=== PATIENT | female | born 1965 | race Caucasian/White ===

== ENCOUNTER → 2016-08-31 | Outpatient (CLI) | payer OTHER ==
--- NOTE | 2016-08-31 22:16 | MR ---
EXAMINATION TYPE: MR knee RT wo con DATE OF EXAM: 08/31/2016 6:34 PM COMPARISON: Outside radiographs 08/26/2016 HISTORY: 50-year-old female with right knee pain for 2 years, lifting weights TECHNIQUE: Multiplanar, multisequence imaging of the right knee is performed without IV contrast. FINDINGS: The ACL, PCL, and MCL are intact. There is a 1.3 cm length of fluid signal along the myotendinous junction of the popliteus suggesting tear. LCL complex are otherwise intact. There is an oblique tear involving the posterior horn and extending to the body of the medial meniscu s. There is a 2.0 x 1.0 cm multilocular parameniscal cyst along the posterior margin. Mild diffuse th inning of medial compartment articular cartilage without high grade cartilage lesion. There is degenerative signal within the posterior horn of the lateral meniscus. Signal may contact th e tibial articular surface, sagittal PD FS image 22. Overall lateral compartment articular cartilage volume is maintained. There is mild to moderate irregular cartilage thinning along both medial and lateral patellar facets. Minimal tendinotic signal at the insertion of the quadriceps tendon. Extensor mechanism otherwise int act. No significant knee joint effusion. There is a small Francis cyst and additional ganglions at the origi n of both medial and lateral heads of the gastrocnemius. Normal popliteal artery anatomy and mild diffuse muscular atrophy. No suspicious bone marrow replacem ent. Mild nonspecific anterior soft tissue swelling. IMPRESSION: 1. An oblique tear of the posterior horn of the medial meniscus extending to the meniscal body. A 2.0 x 1.0 cm multilocular parameniscal cyst is seen along the posterior margin. 2. Degenerative signal within the posterior horn of the lateral meniscus with a possible small menisc al tear contacting the tibial articular surface. 3. [id number] overall patellofemoral compartmental osteoarthrosis. 4. A small 1.3 cm tear along the myotendinous junction of the popliteus. 5. Mild insertional quadriceps tendinosis and small Francis's cyst.
== END | disposition home or self-care (01) ==
LOC: RADMRIMAIN 17:47
PROVIDERS: ATTEND Orthopaedic Surgery
DX: S83.241A Other tear of medial meniscus, current injury, right knee, initial encounter (principal); M17.11 Unilateral primary osteoarthritis, right knee; M71.21 Synovial cyst of popliteal space [Baker], right knee

== ENCOUNTER → 2016-09-14 | Outpatient (CLI) | payer OTHER ==
[2016-09-14 08:53] LABS: Basophils % (A) 1 %; CH 29.5; CHCM 32.8; Eosinophils # (A) 0.2 k/uL (0-0.7); Eosinophils % (A) 4 %; HCT 39.4 % (34.0-46.0); HDW 2.35; Luc # (Auto) 0.11; Luc % (Auto) 2; Lymphocytes # (A) 2.1 k/uL (1.0-4.8); Lymphocytes % (A) 37 %; MCH 29.7 pg (25.0-35.0); MCHC 32.9 g/dL (31.0-37.0); MCV 90.3 fL (80.0-100.0); Mean Platelet Volume 6.2; Monocytes # (A) 0.3 k/uL (0-1.0); Monocytes % (A) 5 %; Neutrophils % (A) 52 %; RBC 4.37 m/uL (3.80-5.40); RDW 12.8 % (11.5-15.5); WBC 5.7 k/uL (3.8-10.6); WBC (Perox) 5.84
[2016-09-14 09:02] LABS: Potassium 4.3 mmol/L (3.5-5.1)
== END | disposition home or self-care (01) ==
LOC: LABPAT 07:59
PROVIDERS: ATTEND Orthopaedic Surgery
DX: Z01.812 Encounter for preprocedural laboratory examination (principal)
CPT/HCPCS: 80051; 85025

== ENCOUNTER → 2016-09-14 | Outpatient (CLI) | payer OTHER ==
[2016-09-14 09:06] LABS: ALT 32 U/L (9-52); AST 25 U/L (14-36); Alkaline Phosphatase 74 U/L (38-126); Anion Gap 10 mmol/L; Blood Urea Nitrogen 13 mg/dL (7-17); Calcium 9.8 mg/dL (8.4-10.2); Carbon Dioxide 30 mmol/L (22-30); Chloride 104 mmol/L (98-107); Cholesterol 196 mg/dL (<200); Glucose 93 mg/dL (74-99); HDL Cholesterol 76 mg/dL (40-60); Non-African American GFR(MDRD) >60 (>60 ml/min/1.73 sqM); Potassium 4.3 mmol/L (3.5-5.1); Sodium 144 mmol/L (137-145); Total Bilirubin 0.7 mg/dL (0.2-1.3); Total Protein 7.5 g/dL (6.3-8.2); Triglycerides 73 mg/dL (<150)
== END | disposition home or self-care (01) ==
LOC: LABWHC1 08:01
PROVIDERS: ATTEND Physician Assistant
DX: Z00.00 Encounter for general adult medical examination without abnormal findings (principal); Z13.220 Encounter for screening for lipoid disorders
CPT/HCPCS: 36415; 80051; 80053; 80061; 82306; 85025

== ENCOUNTER 2016-09-18 08:47 | Day surgery (SDC) | payer OTHER ==
[2016-09-16 15:02] VITALS: BMI 26.6
--- NOTE | 2016-09-17 10:30 | HP ---
DATE OF ADMISSION: CHIEF COMPLAINT: Right knee pain. 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 She notes giving way along with pain at night. She has difficulty with certain activities. It is limiting her function. She has tried medications and injections with only partial temporary relief. PAST MEDICAL HISTORY: Significant for asthma. PAST SURGICAL HISTORY: Significant for laparoscopy and tonsillectomy. CURRENT MEDICATIONS: Ibuprofen. She denies drug allergies. Family history is significant for pulmonary embolism, diabetes, hypertension, arthritis and cancer. SOCIAL HISTORY: Significant for previous tobacco use; however, she quit in 1994. A 16-point review of systems otherwise reviewed and is noncontributory. On examination, the patient is approximately 5 foot 5, 160 pounds of mesomorphic habitus. HEENT exam is nonfocal. Neck is supple. She has painless passive motion of the right hip. Straight leg raise is negative. Active motion of the right knee, -6 to 125 degrees of flexion. She has a trace effusion. She is tender about the medial joint line. Collaterals are stable, Tim is negative, Christina's elicits medial pain. Her distal neurovascular exam appears be intact in the right lower extremity. MRI report 08/31/2016 for the right knee shows a posterior medial meniscal tear along with a parameniscal cyst. IMPRESSION: Right knee internal derangement with symptomatic medial meniscal tear. RECOMMENDATIONS: I talked to the patient at length regarding her treatment options. She is having significant pain and mechanical symptoms, despite conservative measures. After thorough discussion, she opts to proceed with surgery. We will plan to proceed with arthroscopic evaluation with probable partial medial meniscectomy. We will likely perform that as an outpatient procedure.
[~2016-09-18 08:47] MED LIST: DEXAMETHASONE SOD PHOSPHATE 10 MG/ML 1 ML VIAL IV ONE; LACTATED RINGERS 1,000 ML IV SCH; LIDOCAINE 1% 20 ML VIAL (10MG/ML) FOR IV START INTRADERMA PRN; ONDANSETRON 4 MG/2 ML VIAL IVP ONE; SCOPOLAMINE 1.5MG/72HR PATCH TRANSDERM ONE; ceFAZolin 1,000 MG in DEXTROSE/WATER 1 50ML.BAG IV ONE
[2016-09-18] MEDS ORDERED: GLYCOPYRROLATE 0.2 MG/ML 2 ML VIAL ONE (09:56)
[2016-09-18] MEDS ORDERED: LIDOCAINE 1% INJ 10MG/ML (20 ML MDV) ONE (09:56)
[2016-09-18] MEDS ORDERED: SUCCINYLCHOLINE CHLORIDE 100 MG/5 ML SYR IV ONE (09:56)
[2016-09-18] MEDS ORDERED: PROPOFOL 10 MG/ML 20 ML VIAL IV ONE (09:56)
[2016-09-18] MEDS ORDERED: fentaNYL (PF) 50 MCG/ML 2 ML AMP ONE (09:56)
[2016-09-18] MEDS ORDERED: MIDAZOLAM 2 MG/2 ML VIAL ONE (09:56)
[2016-09-18] MEDS ORDERED: MEPERIDINE 50 MG/ML SYRINGE IVP ONE ×2 (10:45→10:50)
--- NOTE | 2016-09-18 10:46 | P.OP ---
Date of Procedure: 09/18/16 Preoperative Diagnosis: Right knee internal derangement Postoperative Diagnosis: Right knee posterior medial meniscal tear/grade 3 chondral injury distal medial femoral condyle/grade 3 chondral injury anterior medial portion of the lateral tibial plateau/reactive synovitis of the medial and patellofemoral compartments Procedure(s) Performed: Right knee arthroscopic partial medial meniscectomy/medial femoral chondrectomy/ lateral tibial chondrectomy/partial synovectomy of the medial and patellofemoral compartments Anesthesia: MAC Surgeon: Eyal Carpio Estimated Blood Loss (ml): 5 Pathology: none sent Condition: stable Disposition: PACU Indications for Procedure: The patient is a 50-year-old female who presents with progressive right knee pain and mechanical symptoms despite conservative measures. A discussion of the risks and benefits of operative intervention versus continued conservative measures was made with patient. She opted to proceed with surgery. Operative risks to include infection, neurovascular injury, development of blood clots, possible incomplete resolution of symptoms and need for subsequent procedures was discussed. Informed consent was obtained. Operative Findings: As below Description of Procedure: The patient was brought to the operating room, and after induction of anesthesia the right knee was examined. Collaterals were stable, Tim was negative, and posterior drawer was negative. The right lower extremity was prepped and draped in a normal fashion. A superior lateral portal was made through a 3 mm skin incision superior and lateral to the patella. This was used for outflow. A lateral portal was made through a 5 mm vertical skin incision lateral to the patella tendon above the joint line. Diagnostic arthroscopy was performed. A medial portal was made through a similar incision medial to the patellar tendon above the joint line. On inspection of the medial compartment, she is noted to have a longitudinal tear involving the middle to posterior one third in the white-white junction. This to be back to stable base with straight baskets and motorized shaver. The remaining medial meniscus was stable and intact. A grade 3 chondral injury involving the distal lateral portion of the medial femoral condyle was noted. There was a loose chondral fragment debrided back to stable base with a motorized shaver. On inspection of the notch, the anterior cruciate ligament was intact. On inspection lateral compartment, a grade 3 chondral injury involving the anterior medial portion of the lateral tibial plateau was noted. The loose chondral fragment was debrided back to stable base with a motorized shaver. The lateral meniscus appeared be stable and intact. On inspection patellofemoral articulation there was marked synovitis. This was debrided with motorized shaver. Chondral fibrillation was noted, however no loose chondral fragments. Synovitis of the anterior medial compartment was also debrided with a motorized shaver. The knee was then thoroughly irrigated. The gutters were clear debris. The portals were then closed with Steri-Strips. A sterile dressing was applied in addition to a compression stocking. The patient was awoken from anesthesia and transferred to recovery room in good condition. Blood loss was estimated 5 mL. No complications were incurred.
[2016-09-18] MEDS: HYDROmorphone 1 MG/ML 1 ML SYRINGE IVP PRN ×2 (11:00→11:10)
[2016-09-18 11:31] VITALS: RESP 16
[2016-09-18] MEDS ORDERED: KETOROLAC 30 MG/ML 1 ML VIAL IVP ONE (11:42)
[2016-09-18] MEDS ORDERED: HYDROcodone/APAP 5-325MG 1 EACH TAB PO ONE (12:44)
[2016-09-18] MEDS ORDERED: HYDROmorphone 1 MG/ML 1 ML SYRINGE IVP ONE (13:22)
[2016-09-18] MEDS ORDERED: LACTATED RINGERS 1,000 ML IV ONE (13:27)
[2016-09-18 13:39] VITALS: TEMP 97
[2016-09-18 14:28] VITALS: BP 118/70; PULSE 100
== END 2016-09-18 15:44 | disposition home or self-care (01) ==
LOC: OR 08:47
PROVIDERS: ATTEND Orthopaedic Surgery
DX: S83.31XA Tear of articular cartilage of right knee, current, initial encounter (principal); S83.241A Other tear of medial meniscus, current injury, right knee, initial encounter; M65.9 Synovitis and tenosynovitis, unspecified; X58.XXXA Exposure to other specified factors, initial encounter; J45.990 Exercise induced bronchospasm; Z79.1 Long term (current) use of non-steroidal anti-inflammatories (NSAID)
CPT/HCPCS: 29881; J2250; J1100; J2175; J2405; J2001; J3010; J1885; J1170; J0690; J0330; J2704

== ENCOUNTER → 2016-12-21 | Outpatient (CLI) | payer OTHER ==
--- NOTE | 2016-12-22 07:47 | BD ---
EXAMINATION TYPE: MG DEXA axial skeleton. DATE OF EXAM: 12/21/2016 COMPARISON: NONE CLINICAL HISTORY: Postmenopausal female per order Height: 64.5 IN Weight: 168 LBS FRAX RISK QUESTIONS: Alcohol (3 or more units per day): NO Family History (Parent hip fracture): NO Glucocorticoids (More than 3mos): NO (Ex: prednisone, prednisolone, methylprednisolone, dexamethasone, and hydrocortisone). History of Fracture in Adulthood: NO Secondary Osteoporosis: 1. Type 1 Diabetes: NO 2. Hyperthyroidism: NO 3. Menopause before 45: YES AGE 42 4. Malnutrition: NO 5. Chronic liver disease: NO Rheumatoid Arthritis: NO Current Tobacco Use: NO RISK FACTORS HISTORY OF: Family History of Osteoporosis: YES MOTHER Active: YES Diet low in dairy products/other sources of calcium: YES Postmenopausal woman: YES AGE 42 Take estrogen and/or progesterone medications: NOT NOW How long: CONTROL AGE 20 - 29 MEDICATIONS: Additional Medications: MULTI VIT, TUMERIC, B12, EXAM MEASUREMENTS: Bone mineral densitometry was performed using the [employer] System. Bone mineral density as measured about the Lumbar spine is: ----- L1-L4(G/cm2): 1.221 T Score Values are as follows: ----- L2: 0.1 ----- L3: 0.3 ----- L4: -0.1 ----- L1-L4: 0.3 Bone mineral density BASELINE Bone mineral density about the R hip (g/cm2): 0.888 Bone mineral density about the L hip (g/cm2): 0.903 T Score values are as follows: -----R Neck: -1.1 -----L Neck: -1.0 -----R Total: -0.9 -----L Total: -0.6 Bone mineral density BASELINE IMPRESSION: Osteopenia (T Score between -2.5 and -1 as noted by T score values at the femoral neck level in the r ight hip. There is slightly increased risk of fracture and the patient may be considered for treatmen t. Re-Screen 2-5 years. NOTE: T-SCORE=SD OF THE YOUNG ADULT MEAN.
--- NOTE | 2016-12-22 11:47 | MM ---
Reason for exam: screening (asymptomatic). Last mammogram was performed 6 years and 10 months ago. History: Patient is postmenopausal. Family history of breast cancer in maternal aunt. Took progesterone beginning at age 44. Physical Findings: A clinical breast exam by your physician is recommended on an annual basis and results should be correlated with mammographic findings. MG Screening Mammo w CAD Bilateral CC and MLO view(s) were taken. Prior study comparison: March 03, 2010, bilateral digital screening mammogram. July 13, 2008, bilateral digital screening mammogram. The breast tissue is heterogeneously dense. This may lower the sensitivity of mammography. Finding: There are typically benign calcifications in the left breast. There is a chronic nodularity in the right breast. No significant changes in finding since March 03, 2010 and July 13, 2008. ASSESSMENT: Benign, BI-RAD 2 RECOMMENDATION: Routine screening mammogram of both breasts in 1 year.
== END | disposition home or self-care (01) ==
LOC: RADMAMWWP 14:39
PROVIDERS: ATTEND Obstetrics & Gynecology
DX: Z12.31 Encounter for screening mammogram for malignant neoplasm of breast (principal); M85.80 Other specified disorders of bone density and structure, unspecified site; Z78.0 Asymptomatic menopausal state
CPT/HCPCS: 77080; G0202

== ENCOUNTER → 2016-12-22 | Outpatient (CLI) | payer OTHER ==
--- NOTE | 2016-12-22 15:52 | CT ---
EXAMINATION TYPE: CT abdomen pelvis w con DATE OF EXAM: 12/22/2016 COMPARISON: NONE HISTORY: Patient complains of LLQ pain and constipation x4 weeks. CT DLP: 763.9 mGycm Automated exposure control for dose reduction was used. CONTRAST: CT scan of the abdomen pelvis is performed with IV Contrast, patient injected with 100 mL of Omnipaqu e 300. FINDINGS- LUNG BASES- No significant abnormality is appreciated. LIVER/GB- No gross abnormality is appreciated. PANCREAS- No gross abnormality is seen. SPLEEN- No gross abnormality is seen. ADRENALS- No gross abnormality is seen. KIDNEYS/BLADDER- no hydronephrosis nephrolithiasis or renal mass. BOWEL- no bowel dilatation. Diverticulosis of the colon with no CT evidence of diverticulitis. Retai jase fecal debris within the colon.. LYMPH NODES- No greater than 1cm abdominal or pelvic lymph nodes areappreciated. OSSEOUS STRUCTURES- No significant abnormality is seen. OTHER- aorta of normal caliber. Small fat-containing periumbilical hernia. IMPRESSION- 1. No acute process.
== END | disposition home or self-care (01) ==
LOC: RADCTMAIN 13:06
PROVIDERS: ATTEND Family Medicine
DX: R10.32 Left lower quadrant pain (principal); R11.0 Nausea; K59.00 Constipation, unspecified
CPT/HCPCS: 74177; Q9967

== ENCOUNTER → 2017-06-11 | Outpatient (CLI) | payer OTHER ==
[2017-06-11 08:17] LABS: Basophils # (A) 0.1 k/uL (0-0.2); Basophils % (A) 1 %; Eosinophils # (A) 0.2 k/uL (0-0.7); Eosinophils % (A) 3 %; HCT 39.9 % (34.0-46.0); HGB 12.6 gm/dL (11.4-16.0); Lymphocytes # (A) 2.4 k/uL (1.0-4.8); Lymphocytes % (A) 35 %; MCH 28.9 pg (25.0-35.0); MCHC 31.5 g/dL (31.0-37.0); MCV 91.6 fL (80.0-100.0); Mean Platelet Volume 6.4; Monocytes # (A) 0.3 k/uL (0-1.0); Monocytes % (A) 4 %; Neutrophils # (A) 3.8 k/uL (1.3-7.7); Neutrophils % (A) 55 %; Platelet Count 347 k/uL (150-450); RBC 4.36 m/uL (3.80-5.40); RDW 12.6 % (11.5-15.5); WBC 6.9 k/uL (3.8-10.6)
[2017-06-11 08:33] LABS: Appearance,Urine Clear (Clear); Bilirubin,Urine Negative (Negative); Blood,Urine Trace (Negative); Color,Urine Yellow; Glucose,Urine (UA) Negative (Negative); Ketones,Urine Negative (Negative); Leukocyte Esterase,Urine Small (Negative); Mucus,Urine Rare /hpf; Nitrite,Urine Negative (Negative); Protein,Urine Negative (Negative); RBC,Urine 1 /hpf (0-5); Specific Gravity,Urine 1.016 (1.001-1.035); Squamous Epithelial Cell,Urine 2 /hpf (0-4); Urobilinogen,Urine <2.0 mg/dL (<2.0); WBC,Urine 2 /hpf (0-5)
[2017-06-11 08:42] LABS: ALT 25 U/L (9-52); AST 21 U/L (14-36); Albumin 4.3 g/dL (3.5-5.0); Alkaline Phosphatase 77 U/L (38-126); Anion Gap 9 mmol/L; Blood Urea Nitrogen 16 mg/dL (7-17); Calcium 10.1 mg/dL (8.4-10.2); Carbon Dioxide 30 mmol/L (22-30); Chloride 105 mmol/L (98-107); Cholesterol 201 mg/dL (<200); Creatine Kinase 198 U/L (30-135); Glucose 84 mg/dL (74-99); HDL Cholesterol 82 mg/dL (40-60); LDL Cholesterol,Calculated 106 mg/dL (0-99); Magnesium 1.9 mg/dL (1.6-2.3); Potassium 4.4 mmol/L (3.5-5.1); Sodium 144 mmol/L (137-145); Total Bilirubin 0.4 mg/dL (0.2-1.3); Triglycerides 67 mg/dL (<150); Uric Acid 5.2 mg/dL (3.7-7.4)
[2017-06-11 08:50] LABS: T4, Free (Free Thyroxine) 0.94 ng/dL (0.78-2.19)
[2017-06-11 11:41] LABS: Erythrocyte Sedimentation Rate 23 mm/hr (0-20)
[2017-06-11 15:20] LABS: Rheumatoid Factor <4 IU/mL (0-15)
[2017-06-11 15:21] LABS: Vitamin D 25 Hydroxy 22.4 ng/mL (30.0-100.0)
[2017-06-11 16:54] LABS: Hemoglobin A1C 5.7 % (4.0-6.0)
[2017-06-11 17:36] LABS: Cyclic Citrullinated Pep IgG NEGATIVE (NEGATIVE)
== END | disposition home or self-care (01) ==
LOC: LABWHC1 07:45
PROVIDERS: ATTEND Family Medicine
DX: M19.90 Unspecified osteoarthritis, unspecified site (principal); Z13.220 Encounter for screening for lipoid disorders; Z13.228 Encounter for screening for other metabolic disorders
CPT/HCPCS: 36415; 80053; 80061; 81001; 82306; 82550; 82607; 83036; 83735; 84439; 84443; 84550; 85025; 85652; 86038; 86200; 86431; 86618

== ENCOUNTER → 2017-11-11 | Outpatient (CLI) | payer MEDICAID ==
--- NOTE | 2017-11-11 13:50 | US ---
EXAMINATION TYPE: US pelvis complete transvag DATE OF EXAM: 11/11/2017 COMPARISON: CT 12/22/2016 CLINICAL HISTORY: N95.0 Post menopausal bleeding. cramping/pressure in pelvis x 4 days TECHNIQUE: Transvaginal (TV) and Transabdominal (TA) . Transabdominal sonographic images of the pel vis were acquired. Transvaginal sonographic images were medically necessary to better assess the fol lowing anatomy: Date of LMP: 10 years ago EXAM MEASUREMENTS: Uterus: 10.0 x 5.8 x 5.5 cm Endometrial Stripe: 2.7 cm Right Ovary: 3.0 x 2.3 x 1.4 cm Left Ovary: 3.4 x 2.3 x 1.9 cm 1. Uterus: Cervical cyst = 0.6 cm 2. Endometrium: 2.7 cm filled with echogenic debris 3. Right Ovary: with cyst =2.8 x 1.8 x 2.4 4. Left Ovary: wnl 5. Bilateral Adnexa: wnl 6. Posterior cul-de-sac: wnl IMPRESSION: 1. thickened and fluid-filled endometrium with internal debris. Consider hysteroscopy to exclude und erlying malignancy.
== END | disposition home or self-care (01) ==
LOC: RADUSMAIN 13:01
PROVIDERS: ATTEND Obstetrics & Gynecology
DX: R93.8 Abnormal findings on diagnostic imaging of other specified body structures (principal); N95.0 Postmenopausal bleeding
CPT/HCPCS: 76830; 76856

== ENCOUNTER → 2017-11-22 | Outpatient (CLI) | payer MEDICAID ==
[2017-11-22 15:46] LABS: Basophils # (A) 0.1 k/uL (0-0.2); Basophils % (A) 1 %; Eosinophils # (A) 0.2 k/uL (0-0.7); Eosinophils % (A) 2 %; HCT 37.2 % (34.0-46.0); HGB 12.5 gm/dL (11.4-16.0); Lymphocytes # (A) 2.9 k/uL (1.0-4.8); Lymphocytes % (A) 35 %; MCH 30.2 pg (25.0-35.0); MCHC 33.6 g/dL (31.0-37.0); MCV 89.9 fL (80.0-100.0); Mean Platelet Volume 6.6; Monocytes # (A) 0.4 k/uL (0-1.0); Monocytes % (A) 5 %; Neutrophils # (A) 4.6 k/uL (1.3-7.7); Neutrophils % (A) 56 %; Platelet Count 372 k/uL (150-450); RBC 4.14 m/uL (3.80-5.40); RDW 13.3 % (11.5-15.5); WBC 8.3 k/uL (3.8-10.6)
== END | disposition home or self-care (01) ==
LOC: LABPAT 14:46
PROVIDERS: ATTEND Obstetrics & Gynecology
DX: Z01.812 Encounter for preprocedural laboratory examination (principal)
CPT/HCPCS: 36415; 85025; 93005

== ENCOUNTER → 2017-12-02 | Day surgery (SDC) | payer MEDICAID ==
[2017-11-29 09:44] VITALS: BMI 28.3
[~2017-12-02] MED LIST changes: +IBUPROFEN 200 MG TAB PO ONE; +KETOROLAC 30 MG/ML 1 ML VIAL ONE; +LIDOCAINE 1% 20 ML VIAL (10MG/ML) FOR IV START INTRADERMA ONE; -LIDOCAINE 1% 20 ML VIAL (10MG/ML) FOR IV START INTRADERMA PRN; +LIDOCAINE 1% INJ 10MG/ML (20 ML MDV) ONE; +MIDAZOLAM 2 MG/2 ML VIAL ONE; +PROPOFOL 10 MG/ML 20 ML VIAL IV ONE; +Pre Op ABX Message 1 EACH MISC MISCELLANE ONE; -SCOPOLAMINE 1.5MG/72HR PATCH TRANSDERM ONE; -ceFAZolin 1,000 MG in DEXTROSE/WATER 1 50ML.BAG IV ONE; +fentaNYL (PF) 50 MCG/ML 2 ML AMP ONE
--- NOTE | 2017-12-02 06:43 | P.HPOB ---
History of Present Illness H&P Date: 12/02/17 Chief Complaint: Postmenopausal bleeding 52-year-old presents for D&C hysteroscopy for a week of postmenopausal bleeding. Her endometrial lining was also thickened over 2 cm. Review of Systems All systems: negative Constitutional: Denies chills, Denies fever Eyes: denies blurred vision, denies pain Ears, nose, mouth and throat: Denies headache, Denies sore throat Cardiovascular: Denies chest pain, Denies shortness of breath Respiratory: Denies cough Gastrointestinal: Denies abdominal pain, Denies diarrhea, Denies nausea, Denies vomiting Genitourinary: Denies dysuria, Denies hematuria Musculoskeletal: Denies myalgias Integumentary: Denies pruritus, Denies rash Neurological: Denies numbness, Denies weakness Psychiatric: Denies anxiety, Denies depression Endocrine: Denies fatigue, Denies weight change Past Medical History Past Medical History: Asthma Additional Past Medical History / Comment(s): post menopausal bleeding & thickening of the endometrium,cortisone injection for heel spurs October 2017,Hx kidney stones,uti's,vericose veins History of Any Multi-Drug Resistant Organisms: None Reported Past Surgical History: Orthopedic Surgery, Tonsillectomy Additional Past Surgical History / Comment(s): rt knee meniscus repair,D&C Additional Past Anesthesia/Blood Transfusion Reaction / Comment(s): "felt very cold after anesthesia and tremors" Smoking Status: Never smoker - Past Family History Father Family Medical History: Cancer, Deep Vein Thrombosis (DVT) Additional Family Medical History / Comment(s): throat Sister(s) Family Medical History: Cancer Additional Family Medical History / Comment(s): liver Medications and Allergies Home Medications Medication Instructions Recorded Confirmed Type Albuterol Inhaler [Ventolin Hfa 2 puff INHALATION Q6HR PRN 09/16/16 11/29/17 History Inhaler] Cyanocobalamin (Vitamin B-12) 1,000 mcg PO DAILY 09/16/16 11/29/17 History [Vitamin B-12] Cholecalciferol [Vitamin D3] 1,000 unit PO DAILY 11/29/17 11/29/17 History Fexofenadine HCl [Renetta Allergy] 180 mg PO DAILY 11/29/17 11/29/17 History Milk Thistle 150 mg PO DAILY 11/29/17 11/29/17 History Turmeric Root Extract [Turmeric] 500 mg PO DAILY 11/29/17 11/29/17 History Allergies Allergy/AdvReac Type Severity Reaction Status Date / Time mold AdvReac SINUS Verified 11/29/17 09:30 SYMPTOMS Exam Osteopathic Statement: *. No significant issues noted on an osteopathic structural exam other than those noted in the History and Physical/Consult. Heart: Regular rate and rhythm Lungs: Clear to auscultation bilaterally Abdomen: Soft, nontender Extremities: Negative Homans sign Assessment and Plan (1) Postmenopausal bleeding Status: Acute Code(s): N95.0 - POSTMENOPAUSAL BLEEDING SNOMED Code(s): 05116471 Plan: 1. D&C, hysteroscopy
[2017-12-02 11:11] VITALS: TEMP 99.3
[2017-12-02] MEDS: HYDROmorphone 0.5 MG/0.5 ML SYRINGE IVP PRN ×2 (11:50→12:05)
[2017-12-02 12:53] VITALS: BP 109/72; PULSE 65; RESP 16
--- NOTE | 2017-12-09 07:40 | P.OP ---
Date of Procedure: 12/02/17 Preoperative Diagnosis: 1. postmenopausal bleeding Postoperative Diagnosis: 1. Postmenopausal bleeding Procedure(s) Performed: D&C hysteroscopy Anesthesia: MAC Surgeon: Gloria Angeles Estimated Blood Loss (ml): 10 IV fluids (ml): 200 Urine output (ml): 50 Pathology: other (endometrial currettings) Condition: stable Disposition: PACU Operative Findings: very thin endometrium on hysteroscopy, both ostia visualized, minimal tissue obtained. Description of Procedure: Patient is taken the operating room where general anesthesia was obtained without difficulty. She is prepped draped in normal sterile fashion dorsal lithotomy position, legs placed in candycane stirrups. Bladder was drained of all urine. Weighted speculum place in vagina and anterior lip the cervix is grasped with tenaculum. Uterus sounded to 8 cm. The cervix was dilated to #6 Hegar dilator. Hysteroscopy was performed, smooth contour of the uterus, very thin endometrium noted very little tissue seen and both ostia visualized. Sharp curet was gently used to obtain endometrial curettings. All instruments removed from the vagina. Patient tolerated procedure well, sponge and instrument counts are correct 2 and she was taken to recovery in stable condition.
== END | disposition home or self-care (01) ==
LOC: OR 08:59
PROVIDERS: ATTEND Obstetrics & Gynecology
DX: N95.0 Postmenopausal bleeding (principal); J45.909 Unspecified asthma, uncomplicated; Z79.899 Other long term (current) drug therapy; Z91.09 Other allergy status, other than to drugs and biological substances
CPT/HCPCS: 81025; 88305; 84703; 58558; J2250; J1100; J2405; J2001; J3010; J1885; J2704; J1170

== ENCOUNTER → 2018-04-25 | Outpatient (CLI) | payer MEDICAID ==
--- NOTE | 2018-04-25 09:58 | MR ---
EXAMINATION TYPE: MR knee RT wo con DATE OF EXAM: 04/25/2018 COMPARISON: 08/31/2016 HISTORY: Right knee pain TECHNIQUE: Multiplanar, multisequence imaging of the right knee is performed without IV contrast. FINDINGS: MEDIAL MENISCUS: The previously seen oblique tear involving the posterior horn of the medial meniscus is less well appreciated on today's examination however there is redemonstration of a complex multil oculated para meniscal cyst along the posterior margin measuring up to 1.5 cm. The free edge of the m edial meniscus appears blunted and may be on the basis of prior partial meniscectomy. LATERAL MENISCUS: Myxoid degeneration of the posterior horn of the lateral meniscus is again seen. No discrete tear of the lateral meniscus. CRUCIATE LIGAMENTS: The anterior and posterior cruciate ligaments are intact and unremarkable. COLLATERAL LIGAMENTS: The medial collateral ligament and lateral collateral ligament complex are inta ct and unremarkable. EXTENSOR MECHANISM: Visualized quadriceps and patellar tendons are intact. However there is high sign al at the insertional fibers of the quadriceps tendons. EFFUSION: No significant suprapatellar joint effusion. POPLITEAL CYST: Small popliteal cyst is seen. CARTILAGE: As seen on the prior there is moderate irregular cartilaginous thinning along the medial a nd lateral patellar facets. There are new multifocal subchondral cyst within the lateral and medial p atellar facets. There is also mild cartilaginous thinning of the femoral cartilage of the medial comp artment and the medial aspect of the lateral compartment with partial thickness cartilaginous defects of the medial weightbearing surface measuring approximately 1.8 cm of the medial femoral condyle and 6 mm of the lateral femoral condyle. BONE MARROW SIGNAL: No focal abnormal marrow signal is appreciated. OTHER: Again there is elongated fluid signal along the popliteus similar to the prior suggesting non progressed tear. Redemonstration of minimal prepatellar and infrapatellar subcutaneous edema. Small g anglion cysts are again noted. IMPRESSION: 1. There remains a parameniscal cyst posterior to the posterior horn of the medial meniscus. The prev iously seen oblique tear is not appreciated on today's examination status post surgical intervention with the free edge appearing diminutive possibly related to partial meniscectomy. 2. No lateral meniscal tear however there remains posterior horn meniscal degeneration. 3. No interval progression or healing of the small partial-thickness popliteus heterogenous junction tear as seen on the prior of 08/31/2016. 4. Similar-appearing mild quadriceps insertional tendinosis. 5. [id number] tricompartmental compartment osteochondrosis most significant at the patellofemor al compartment with new subchondral cystic formation in both the lateral and medial facets.
== END | disposition home or self-care (01) ==
LOC: RADMRIMAIN 08:51
PROVIDERS: ATTEND Orthopaedic Surgery
DX: M23.021 Cystic meniscus, posterior horn of medial meniscus, right knee (principal); M92.41 Juvenile osteochondrosis of patella, right knee; M25.861 Other specified joint disorders, right knee; M76.9 Unspecified enthesopathy, lower limb, excluding foot

== ENCOUNTER → 2018-06-24 | Outpatient (CLI) | payer BC ==
[2018-06-24 13:42] LABS: Basophils % (A) 1 %; Eosinophils # (A) 0.2 k/uL (0-0.7); Eosinophils % (A) 2 %; HCT 42.9 % (34.0-46.0); HGB 13.4 gm/dL (11.4-16.0); Lymphocytes # (A) 3.1 k/uL (1.0-4.8); Lymphocytes % (A) 35 %; MCH 28.3 pg (25.0-35.0); MCHC 31.3 g/dL (31.0-37.0); MCV 90.4 fL (80.0-100.0); Mean Platelet Volume 6.1; Monocytes # (A) 0.4 k/uL (0-1.0); Monocytes % (A) 4 %; Neutrophils # (A) 5.1 k/uL (1.3-7.7); Neutrophils % (A) 57 %; Platelet Count 387 k/uL (150-450); RBC 4.74 m/uL (3.80-5.40)
[2018-06-24 13:52] LABS: Potassium 4.3 mmol/L (3.5-5.1)
== END | disposition home or self-care (01) ==
LOC: LABPAT 12:01
PROVIDERS: ATTEND Orthopaedic Surgery
DX: Z01.818 Encounter for other preprocedural examination (principal); Z01.812 Encounter for preprocedural laboratory examination; M23.91 Unspecified internal derangement of right knee
CPT/HCPCS: 36415; 80051; 85025; 93005

== ENCOUNTER 2018-07-01 07:42 | Day surgery (SDC) | payer BC, MEDICAID ==
[2018-06-29 11:13] VITALS: BMI 27.9
--- NOTE | 2018-06-30 09:14 | HP ---
HISTORY AND PHYSICAL CHIEF COMPLAINT: Right knee pain. 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 She is having pain, giving way, and soreness. She has tried anti-inflammatory medications along with an injection with minimal relief. She had a previous arthroscopy in 2017 of the right knee and initially did well after that. PAST MEDICAL HISTORY: Significant for asthma. PAST SURGICAL HISTORY: Significant for laparoscopy, tonsillectomy, and right knee arthroscopy. CURRENT MEDICATIONS: Ventolin inhaler. ALLERGIES: She denies drug allergies. FAMILY HISTORY: Significant for pulmonary embolism, multiple sclerosis, cancer, heart disease, diabetes, and hypertension. SOCIAL HISTORY: Significant for previous tobacco use; however, she quit in 1994. REVIEW OF SYSTEMS: Sixteen-point review of systems otherwise reviewed and is noncontributory. PHYSICAL EXAMINATION: On examination, the patient is approximately 5 feet 5 inches, 168 pounds of mesomorphic habitus. HEENT exam is nonfocal. Neck is supple. She has painless passive motion of the right hip. Straight leg raise is negative. Active motion right knee -4 to 125 degrees of flexion. She has a trace effusion. She is tender about the medial joint line and medial patellar facet. Collaterals are stable, Tim's negative, Christina's elicits medial pain. Her distal neurovascular exam appears intact in the right lower extremity. MRI report for the right knee from 04/25/2018 shows a medial parameniscal cyst along with partial previous medial meniscectomy. IMPRESSION: Right knee internal derangement with possible recurrent medial meniscal tear. RECOMMENDATIONS: I talked to the patient at length regarding her condition and treatment options. At this point, she is quite symptomatic and opts to proceed with surgery. We will plan to proceed with arthroscopic evaluation with possible partial medial meniscectomy in attempt to decompress her parameniscal cyst. Risks and benefits were discussed at length in layman's terms. We will likely perform that as an outpatient procedure. MMODL / IJN: [id number] /
[~2018-07-01 07:42] MED LIST changes: -IBUPROFEN 200 MG TAB PO ONE; -KETOROLAC 30 MG/ML 1 ML VIAL ONE; -LIDOCAINE 1% 20 ML VIAL (10MG/ML) FOR IV START INTRADERMA ONE; -LIDOCAINE 1% INJ 10MG/ML (20 ML MDV) ONE; +MIDAZOLAM (PF) 2 MG/2 ML VIAL IV PRN; -MIDAZOLAM 2 MG/2 ML VIAL ONE; -PROPOFOL 10 MG/ML 20 ML VIAL IV ONE; -Pre Op ABX Message 1 EACH MISC MISCELLANE ONE; +SCOPOLAMINE 1.5MG/72HR PATCH TRANSDERM ONE; +ceFAZolin IN SWFI 2 GM/20 ML SYRINGE IVP ONE; -fentaNYL (PF) 50 MCG/ML 2 ML AMP ONE
[2018-07-01] MEDS ORDERED: LIDOCAINE 1% 20 ML VIAL (10MG/ML) FOR IV START INTRADERMA ONE (08:03)
[2018-07-01] MEDS ORDERED: LIDOCAINE 1% INJ 10MG/ML (20 ML MDV) ONE (09:05)
[2018-07-01] MEDS ORDERED: PROPOFOL 10 MG/ML 20 ML VIAL IV ONE (09:05)
[2018-07-01] MEDS ORDERED: KETOROLAC 30 MG/ML 1 ML VIAL ONE (09:05)
[2018-07-01] MEDS ORDERED: fentaNYL (PF) 50 MCG/ML 2 ML AMP ONE (09:05)
[2018-07-01] MEDS ORDERED: MIDAZOLAM 2 MG/2 ML VIAL ONE (09:05)
[2018-07-01] MEDS ORDERED: EPINEPHrine (PF) 1 ML in SODIUM CHLORIDE 0.9% IRRIGATIO 3,000 ML IRRIGATION ONE ×4 (09:10)
--- NOTE | 2018-07-01 09:50 | P.OP ---
Date of Procedure: 07/01/18 Preoperative Diagnosis: Right knee internal derangement Postoperative Diagnosis: Right knee recurrent medial meniscal tear/grade 2 chondral injury distal lateral medial femoral condyle/grade 3 chondral injury anterior medial aspect lateral tibial plateau Procedure(s) Performed: Right knee arthroscopic partial medial meniscectomy/medial femoral chondrectomy/ lateral tibial chondrectomy Anesthesia: DIANNA Surgeon: Eyal Carpio Estimated Blood Loss (ml): 10 Pathology: none sent Condition: stable Disposition: PACU Indications for Procedure: The patient's a 52-year-old female presents with progressive right knee pain and mechanical symptoms despite conservative measures. A discussion of the risks and benefits of operative intervention versus continued conservative measures with patient. She opted proceed with surgery. Operative risks to include infection, neurovascular injury, development of blood clots, possible incomplete resolution of symptoms, possible worsening symptoms and need for subsequent procedures was discussed. Informed consent was obtained. Operative Findings: As below Description of Procedure: The patient was brought to the operating room, and after induction of general anesthesia examined the right knee. Collaterals were stable, Tim was negative, and posterior drawer was negative. The right lower extremity was prepped and draped in a normal fashion. A superior lateral portal was made through a 3 mm skin incision superior and lateral to the patella. This was used for outflow. A lateral portal was made through a 5 mm vertical skin incision lateral to the patella tendon above the joint line. Diagnostic arthroscopy was performed. On inspection of the medial compartment, and undersurface tear of the middle one third of the medial meniscus was noted. This was debrided back to stable base with a motorized shaver. Previous MRI showed evidence of a large medial daiana-meniscal cyst. Utilized a spinal needle to make several perforations through this area to try to decompress the cyst. On inspection of the notch, the anterior cruciate ligament appeared to be intact. On inspection of the lateral compartment, a grade 3 chondral injury involving the anterior medial portion of the lateral tibial plateau was noted. There was a loose chondral fragment was debrided back to stable base with a motorized shaver. On inspection of the patellofemoral articulation, grade 2 chondral changes were noted diffusely. The gutters were clear debris. The knee was then thoroughly irrigated. The portals were closed with Steri-Strips. A sterile dressing was applied in addition to a compression stocking. The patient was awoken from general anesthesia and transferred to recovery room in good condition. Blood loss was estimated at 10 mL. No complications were incurred.
[2018-07-01 09:56] VITALS: TEMP 97.5
[2018-07-01] MEDS: HYDROmorphone 0.5 MG/0.5 ML SYRINGE IVP PRN ×2 (10:10→10:20)
[2018-07-01] MEDS ORDERED: MEPERIDINE 50 MG/ML SYRINGE IVP ONE (10:27)
[2018-07-01] MEDS ORDERED: LACTATED RINGERS 1,000 ML IV ONE ×2 (10:37)
[2018-07-01] MEDS ORDERED: diphenhydrAMINE 50 MG/ML 1 ML VIAL IVP ONE (12:41)
[2018-07-01 14:12] VITALS: BP 111/70; PULSE 93; RESP 18
== END 2018-07-01 14:21 | disposition home or self-care (01) ==
LOC: OR 07:42
PROVIDERS: ATTEND Orthopaedic Surgery
DX: S83.241A Other tear of medial meniscus, current injury, right knee, initial encounter (principal); X58.XXXA Exposure to other specified factors, initial encounter; J45.909 Unspecified asthma, uncomplicated; M19.90 Unspecified osteoarthritis, unspecified site; Z79.899 Other long term (current) drug therapy; Z87.891 Personal history of nicotine dependence
CPT/HCPCS: 29881; J2250; J1200; J1100; J2175; J2405; J0171; J2001; J3010; J1885; J2704; J1170; J0690

== ENCOUNTER 2019-07-24 19:02 | Emergency (ER) | payer BC ==
[2019-07-24 19:12] VITALS: RESP 18
[2019-07-24] MEDS ORDERED: KETOROLAC 30 MG/ML 1 ML VIAL IVP STA (19:36)
[2019-07-24] MEDS ORDERED: SODIUM CHLORIDE 0.9% 1,000 ML IV STA (19:36)
[2019-07-24] MEDS ORDERED: MORPHINE SULFATE 4 MG/ML SYRINGE IV STA (19:36)
--- NOTE | 2019-07-24 19:39 | ED ---
General Adult HPI - General Chief complaint: Abdominal Pain Stated complaint: kidney pain Time Seen by Provider: 07/24/19 19:29 Source: patient, RN notes reviewed, old records reviewed Mode of arrival: ambulatory Limitations: no limitations - History of Present Illness Initial comments: 53 -year-old female presenting for evaluation of abdominal pain. Pain began as crampy diffuse abdominal pain, denies localized to the right flank. She has radius history of kidney stones. She is reporting some radiation to her groin. No dysuria or hematuria. She states this pain is similar to previous kidney stones. No vomiting. No chest pain or dyspnea. No fever or chills. - Related Data Home Medications Medication Instructions Recorded Confirmed Albuterol Inhaler [Ventolin Hfa 2 puff INHALATION Q6HR PRN 09/16/16 07/01/18 Inhaler] Cyanocobalamin (Vitamin B-12) 1,000 mcg PO DAILY 09/16/16 06/29/18 [Vitamin B-12] Cholecalciferol [Vitamin D3] 1,000 unit PO DAILY 11/29/17 06/29/18 Turmeric Root Extract [Turmeric] 500 mg PO DAILY 11/29/17 06/29/18 Previous Rx's Medication Instructions Recorded Hydrocodone/Acetaminophen [[place] 1 each PO Q6HR PRN #21 tab 07/01/18 5-325] Cephalexin [Keflex] 500 mg PO Q12HR #20 cap 07/24/19 Allergies Allergy/AdvReac Type Severity Reaction Status Date / Time cat dander Allergy Unknown Verified 07/24/19 19:12 mold AdvReac SINUS Verified 07/24/19 19:12 SYMPTOMS Review of Systems ROS Statement: Those systems with pertinent positive or pertinent negative responses have been documented in the HPI. ROS Other: All systems not noted in ROS Statement are negative. Past Medical History Past Medical History: Asthma Additional Past Medical History / Comment(s): post menopausal bleeding & thickening of the endometrium,cortisone injection for heel spurs October 2017,Hx kidney stones,uti's,vericose veins History of Any Multi-Drug Resistant Organisms: None Reported Past Surgical History: Orthopedic Surgery, Tonsillectomy Additional Past Surgical History / Comment(s): rt knee meniscus repair,D&C Additional Past Anesthesia/Blood Transfusion Reaction / Comment(s): "felt very cold after anesthesia and tremors" Past Psychological History: No Psychological Hx Reported Smoking Status: Never smoker Past Alcohol Use History: None Reported Past Drug Use History: None Reported - Past Family History Father Family Medical History: Cancer, Pulmonary Embolus Additional Family Medical History / Comment(s): throat cancer Sister(s) Family Medical History: Cancer Additional Family Medical History / Comment(s): liver General Exam Limitations: no limitations General appearance: alert, in no apparent distress Head exam: Present: atraumatic, normocephalic Eye exam: Present: normal appearance, PERRL ENT exam: Present: normal exam Neck exam: Present: normal inspection. Absent: tenderness, meningismus Respiratory exam: Present: normal lung sounds bilaterally. Absent: respiratory distress Cardiovascular Exam: Present: regular rate, normal rhythm GI/Abdominal exam: Present: soft. Absent: distended, tenderness, guarding Extremities exam: Present: normal inspection, normal capillary refill. Absent: pedal edema Back exam: Present: CVA tenderness (R) Neurological exam: Present: alert, oriented X3, CN II-XII intact. Absent: motor sensory deficit Psychiatric exam: Present: normal affect, normal mood Skin exam: Present: warm, dry, intact. Absent: cyanosis, diaphoretic Course Vital Signs 07/24/19 19:08 Temperature 98 F Pulse Rate 98 Respiratory 18 Rate Blood Pressure 162/94 O2 Sat by Pulse 99 Oximetry Medical Decision Making - Medical Decision Making 53-year-old female with history of kidney stones presenting with abdominal pain, right flank pain. History was concerning for renal colic. Workup was initiated, KUB performed which is negative for nephrolithiasis, no obstruction or intraperitoneal free air. Patient has a normal CBC, no leukocytosis, stable hemoglobin. She has normal x-rays, normal renal function. No transaminitis. Urinalysis is positive for [address] was performed without contrast, this was negative for kidney stones, no hydronephrosis. Additional intra- abdominal structures reviewed, no signs of appendicitis, no signs of gallbladder or liver pathology. No small bowel obstruction. I did reevaluate the patient after Toradol, she had declined morphine administration. She was feeling barbra ewhat better although still had right flank pain. We did discuss both admission for symptom control as well as outpatient with close follow-up and return parameters. Patient prefers to be discharged home with return parameters and outpatient follow-up. She will be treated for UTI. She has hydrocodone at home and will take this if symptoms persist. She has department with her primary care physician tomorrow. - Lab Data Result diagrams: 07/24/19 20:25 07/24/19 20:25 Lab Results 07/24/19 07/24/19 07/24/19 Range/Units 20:25 20:25 20:25 WBC 9.2 (3.8-10.6) k/uL RBC 4.54 (3.80-5.40) m/uL Hgb 13.3 (11.4-16.0) gm/dL Hct 40.6 (34.0-46.0) % MCV 89.4 (80.0-100.0) fL MCH 29.3 (25.0-35.0) pg MCHC 32.8 (31.0-37.0) g/dL RDW 12.8 (11.5-15.5) % Plt Count 353 (150-450) k/uL Neutrophils % 50 % Lymphocytes % 39 % Monocytes % 5 % Eosinophils % 4 % Basophils % 1 % Neutrophils # 4.6 (1.3-7.7) k/uL Lymphocytes # 3.6 (1.0-4.8) k/uL Monocytes # 0.4 (0-1.0) k/uL Eosinophils # 0.3 (0-0.7) k/uL Basophils # 0.0 (0-0.2) k/uL PT 9.5 (9.0-12.0) sec INR 0.9 (<1.2) APTT 22.7 (22.0-30.0) sec Sodium (137-145) mmol/L Potassium (3.5-5.1) mmol/L Chloride (98-107) mmol/L Carbon Dioxide (22-30) mmol/L Anion Gap mmol/L BUN (7-17) mg/dL Creatinine (0.52-1.04) mg/dL Est GFR (CKD-EPI)AfAm (>60 ml/min/1.73 sqM) Est GFR (CKD-EPI)NonAf (>60 ml/min/1.73 sqM) Glucose (74-99) mg/dL Plasma Lactic Acid Oskar (0.7-2.0) mmol/L Calcium (8.4-10.2) mg/dL Total Bilirubin (0.2-1.3) mg/dL AST (14-36) U/L ALT (4-34) U/L Alkaline Phosphatase (38-126) U/L Total Protein (6.3-8.2) g/dL Albumin (3.5-5.0) g/dL Amylase (30-110) U/L Lipase (23-300) U/L Urine Color Yellow Urine Appearance Clear (Clear) Urine pH 6.5 (5.0-8.0) Ur Specific Melvin 1.018 (1.001-1.035) Urine Protein Negative (Negative) Urine Glucose (UA) Negative (Negative) Urine Ketones Negative (Negative) Urine Blood Negative (Negative) Urine Nitrite Negative (Negative) Urine Bilirubin Negative (Negative) Urine Urobilinogen <2.0 (<2.0) mg/dL Ur Leukocyte Esterase Large H (Negative) Urine RBC 2 (0-5) /hpf Urine WBC 38 H (0-5) /hpf Ur Squamous Epith Cells 1 (0-4) /hpf Urine Bacteria Rare H (None) /hpf Urine Mucus Rare H (None) /hpf 07/24/19 07/24/19 Range/Units 20:25 20:25 WBC (3.8-10.6) k/uL RBC (3.80-5.40) m/uL Hgb (11.4-16.0) gm/dL Hct (34.0-46.0) % MCV (80.0-100.0) fL MCH (25.0-35.0) pg MCHC (31.0-37.0) g/dL RDW (11.5-15.5) % Plt Count (150-450) k/uL Neutrophils % % Lymphocytes % % Monocytes % % Eosinophils % % Basophils % % Neutrophils # (1.3-7.7) k/uL Lymphocytes # (1.0-4.8) k/uL Monocytes # (0-1.0) k/uL Eosinophils # (0-0.7) k/uL Basophils # (0-0.2) k/uL PT (9.0-12.0) sec INR (<1.2) APTT (22.0-30.0) sec Sodium 139 (137-145) mmol/L Potassium 4.3 (3.5-5.1) mmol/L Chloride 103 (98-107) mmol/L Carbon Dioxide 26 (22-30) mmol/L Anion Gap 10 mmol/L BUN 17 (7-17) mg/dL Creatinine 0.89 (0.52-1.04) mg/dL Est GFR (CKD-EPI)AfAm 86 (>60 ml/min/1.73 sqM) Est GFR (CKD-EPI)NonAf 75 (>60 ml/min/1.73 sqM) Glucose 90 (74-99) mg/dL Plasma Lactic Acid Oskar 0.9 (0.7-2.0) mmol/L Calcium 9.8 (8.4-10.2) mg/dL Total Bilirubin 0.3 (0.2-1.3) mg/dL AST 32 (14-36) U/L ALT 33 (4-34) U/L Alkaline Phosphatase 89 (38-126) U/L Total Protein 7.8 (6.3-8.2) g/dL Albumin 4.9 (3.5-5.0) g/dL Amylase 58 (30-110) U/L Lipase 140 (23-300) U/L Urine Color Urine Appearance (Clear) Urine pH (5.0-8.0) Ur Specific Melvin (1.001-1.035) Urine Protein (Negative) Urine Glucose (UA) (Negative) Urine Ketones (Negative) Urine Blood (Negative) Urine Nitrite (Negative) Urine Bilirubin (Negative) Urine Urobilinogen (<2.0) mg/dL Ur Leukocyte Esterase (Negative) Urine RBC (0-5) /hpf Urine WBC (0-5) /hpf Ur Squamous Epith Cells (0-4) /hpf Urine Bacteria (None) /hpf Urine Mucus (None) /hpf Disposition Clinical Impression: Abdominal pain, UTI (urinary tract infection) Disposition: HOME SELF-CARE Condition: Good Instructions (If sedation given, give patient instructions): Abdominal Pain (ED), Urinary Tract Infection in Women (ED) Prescriptions: Cephalexin [Keflex] 500 mg PO Q12HR #20 cap Is patient prescribed a controlled substance at d/c from ED?: No Referrals: Paula Davison MD [Primary Care Provider] - 1-2 days Time of Disposition: 22:02
--- NOTE | 2019-07-24 20:05 | XR ---
EXAMINATION TYPE: XR KUB DATE OF EXAM: 07/24/2019 7:59 PM CLINICAL HISTORY: History of kidney stones with right-sided flank pain. TECHNIQUE: Two Upright KUB images of the abdomen are obtained. COMPARISON: CT abdomen and pelvis December 22, 2016. FINDINGS: Scattered gas is seen in non-distended stomach and small bowel loops. Gas and fecal materia l is seen in non-distended colon along the periphery. There is no visceromegaly, pneumoperitoneum, or abnormal calcification appreciated. The lung bases are clear and the osseous structures are intact. IMPRESSION: Overall nonobstructive bowel gas pattern. No definite nephrolithiasis.
[2019-07-24 20:43] LABS: Basophils % (A) 1 %; Eosinophils # (A) 0.3 k/uL (0-0.7); Eosinophils % (A) 4 %; HCT 40.6 % (34.0-46.0); HGB 13.3 gm/dL (11.4-16.0); Lymphocytes # (A) 3.6 k/uL (1.0-4.8); Lymphocytes % (A) 39 %; MCH 29.3 pg (25.0-35.0); MCHC 32.8 g/dL (31.0-37.0); MCV 89.4 fL (80.0-100.0); Monocytes # (A) 0.4 k/uL (0-1.0); Monocytes % (A) 5 %; Neutrophils # (A) 4.6 k/uL (1.3-7.7); Neutrophils % (A) 50 %; Platelet Count 353 k/uL (150-450); RBC 4.54 m/uL (3.80-5.40); RDW 12.8 % (11.5-15.5); WBC 9.2 k/uL (3.8-10.6)
[2019-07-24 20:48] LABS: Appearance,Urine Clear (Clear); Bacteria,Urine Rare /hpf; Bilirubin,Urine Negative (Negative); Blood,Urine Negative (Negative); Color,Urine Yellow; Glucose,Urine (UA) Negative (Negative); Ketones,Urine Negative (Negative); Leukocyte Esterase,Urine Large (Negative); Mucus,Urine Rare /hpf; Nitrite,Urine Negative (Negative); PH, Urine 6.5 (5.0-8.0); Protein,Urine Negative (Negative); RBC,Urine 2 /hpf (0-5); Specific Gravity,Urine 1.018 (1.001-1.035); Squamous Epithelial Cell,Urine 1 /hpf (0-4); Urobilinogen,Urine <2.0 mg/dL (<2.0); WBC,Urine 38 /hpf (0-5)
[2019-07-24 20:49] LABS: Albumin 4.9 g/dL (3.5-5.0); Calcium 9.8 mg/dL (8.4-10.2); INR 0.9 (<1.2); Partial Thromboplastin Time 22.7 sec (22.0-30.0); Potassium 4.3 mmol/L (3.5-5.1); Prothrombin Time 9.5 sec (9.0-12.0); Total Bilirubin 0.3 mg/dL (0.2-1.3); Total Protein 7.8 g/dL (6.3-8.2)
--- NOTE | 2019-07-24 21:41 | CT ---
EXAMINATION TYPE: CT abdomen pelvis wo con DATE OF EXAM: 07/24/2019 HISTORY: flank pain, hx of stones CT DLP: 657.5 mGycm. Automated Exposure Control for Dose Reduction was Utilized. TECHNIQUE: CT scan of the abdomen and pelvis is performed without oral or IV contrast. COMPARISON: Prior CT abdomen and pelvis December 22, 2016 FINDINGS: Within the limitations of a non-contrast study, the following observations are made. LUNG BASES: No significant abnormality is appreciated. LIVER/GB: No significant abnormality is appreciated. PANCREAS: No significant abnormality is seen. SPLEEN: No significant abnormality is seen. ADRENALS: No significant abnormality is seen. KIDNEYS: No renal stones or hydronephrosis identified on current study. No intraluminal calculus in u rinary bladder. BOWEL: No suspicious small or large bowel dilatation. Occasional sigmoid colonic diverticula without CT evidence for acute diverticulitis. Normal-appearing appendix seen from base of cecum. GENITAL ORGANS: Anteverted uterus. Scattered pelvic phleboliths bilaterally. LYMPH NODES: No greater than 1cm abdominal or pelvic lymph nodes are appreciated. OSSEOUS STRUCTURES: No significant abnormality is seen. OTHER: Small fat-containing umbilical hernia redemonstrated. IMPRESSION: No renal stones or hydronephrosis is seen bilaterally on current study. No new or acute f indings present to account for patient's symptoms on noncontrast CT.
[2019-07-24] MEDS ORDERED: cefTRIAXone IN SWFI 1,000 MG/10 ML SYRINGE IVP STA (21:53)
[2019-07-24 22:11] VITALS: BP 123/81; PULSE 80; TEMP 98
== END 2019-07-24 22:14 | disposition home or self-care (01) ==
LOC: EC 19:02
DX: N39.0 Urinary tract infection, site not specified (principal); J45.909 Unspecified asthma, uncomplicated; Z91.048 Other nonmedicinal substance allergy status; Z79.899 Other long term (current) drug therapy; Z87.442 Personal history of urinary calculi; Z80.0 Family history of malignant neoplasm of digestive organs; Z53.20 Procedure and treatment not carried out because of patient's decision for unspecified reasons
CPT/HCPCS: 36415; 80053; 82150; 83605; 83690; 85025; 85610; 85730; 81001; 87086; 74018; 74176; 99285; 96374; 96375; 96361; J0696; J1885